=== PATIENT | male | born 1960 | race African-American/Black ===

== ENCOUNTER 2017-09-20 08:39 | Inpatient (IN) ==
[2017-09-20] MEDS ORDERED: MAGNESIUM SULF RIDER 4 GM in PREMIX 1 EACH IV PRN (12:49)
[2017-09-20] MEDS ORDERED: MAGNESIUM SULF RIDER 2 GM in PREMIX 1 EACH IV PRN ×2 (12:49→15:13)
[2017-09-20] MEDS ORDERED: ZALEPLON 5 MG CAPSULE PO PRN (12:50)
[2017-09-20] MEDS ORDERED: DOCUSATE SODIUM 100 MG CAPSULE PO PRN (12:50)
[2017-09-20] MEDS ORDERED: ONDANSETRON 4 MG/2 ML VIAL IV PRN (12:50)
[2017-09-20] MEDS ORDERED: ACETAMINOPHEN 325 MG TABLET PO PRN (12:50)
[2017-09-20] MEDS ORDERED: MORPHINE 4 MG/1 ML VIAL IV PRN (12:50)
[2017-09-20] MEDS ORDERED: diphenhydrAMINE CAP 25 MG CAPSULE PO PRN (12:50)
[2017-09-20 13:41] LABS: Basophils # 0.1 10*3/uL (0.0-0.2); Basophils % 1.2 % (0.0-0.8); Eosinophils # 0.8 10*3/uL (0.0-0.87); Eosinophils % 9.8 % (0.00-10.9); Hematocrit 48.5 VOL% (42.0-52.0); Hemoglobin 15.9 GM/DL (14.0-18.0); Immature Granulocytes % 0.3 %; Immature Granulocytes Absolute 0.02 #; Lymphocytes # 1.7 10*3/uL (1.4-4.0); Lymphocytes % 22.4 % (21.2-54.2); Mean Corpuscular HGB Conc 32.8 GM/DL (32-36); Mean Corpuscular Hemoglobin 29 PG (27-34); Mean Corpuscular Volume 89.8 FL (87-102); Monocytes # 0.9 10*3/uL (0.11-0.8); Neutrophils # 4.2 10*3/uL (1.4-7.4); Neutrophils % 54.3 % (38.7-73.9); Platelet Count 320 T/CUMM (130-400); Red Cell Distribution Width 14.1 % (9.3-17.3); White Blood Count 7.7 T/CUMM (4-12)
[2017-09-20 14:16] LABS: Albumin 2.7 G/DL (3.4-5.0); Bilirubin,Total 0.8 MG/DL (0.2-1.0); Calcium 8.8 MG/DL (8.5-10.1); Osmolality,Calculated 280.5 MOS/KG (273-304); Potassium 4.4 MMOL/L (3.5-5.1); Thyroid Stimulating Hormone 4.85 uIU/ml (0.358-3.74); Total Protein 6.8 G/DL (6.4-8.3)
[2017-09-20] MEDS ORDERED: NITROGLYCERIN SL 0.4 MG TABLET SL PRN (15:09)
[2017-09-20] MEDS ORDERED: POTASSIUM CHLORIDE RIDER 10 MEQ in PREMIX 1 EACH IV PRN (15:13)
[2017-09-20] MEDS: CARVEDILOL 3.125 MG TABLET PO SCH (16:56)
[2017-09-21] MEDS: SODIUM CHLORIDE 0.45% 1,000 ML IV SCH ×3 (02:23→22:40)
[2017-09-21 06:07] LABS: Basophils % 0.6 % (0.0-0.8); Eosinophils # 0.5 10*3/uL (0.0-0.87); Eosinophils % 10.3 % (0.00-10.9); Hematocrit 35.3 VOL% (42.0-52.0); Hemoglobin 11.6 GM/DL (14.0-18.0); Immature Granulocytes % 0.2 %; Immature Granulocytes Absolute 0.01 #; Lymphocytes # 1.1 10*3/uL (1.4-4.0); Lymphocytes % 24.1 % (21.2-54.2); Mean Corpuscular HGB Conc 32.9 GM/DL (32-36); Mean Corpuscular Hemoglobin 30 PG (27-34); Mean Corpuscular Volume 90.3 FL (87-102); Mean Platelet Volume 11.5 FL (9.6-12.0); Monocytes # 0.6 10*3/uL (0.11-0.8); Monocytes % 13.8 % (1.7-12.7); Neutrophils # 2.4 10*3/uL (1.4-7.4); Platelet Count 218 T/CUMM (130-400); Red Blood Count 3.91 MC/CUMM (3.8-5.5); Red Cell Distribution Width 13.8 % (9.3-17.3); White Blood Count 4.6 T/CUMM (4-12)
[2017-09-21 06:33] LABS: Albumin 2.3 G/DL (3.4-5.0); Bilirubin,Total 0.8 MG/DL (0.2-1.0); Calcium 8.1 MG/DL (8.5-10.1); Osmolality,Calculated 274.8 MOS/KG (273-304); Potassium 4.3 MMOL/L (3.5-5.1); Risk Ratio 3.21; Total Protein 5.9 G/DL (6.4-8.3); VLDL CHOLESTEROL 12.4 MG/DL
[2017-09-21] MEDS ORDERED: LIDOCAINE 1% 20 ML VIAL ONE (06:45)
[2017-09-21] MEDS ORDERED: HEPARIN/NACL 0.9% 2 UNITS/ML 1,000 ML IV ONE (06:45)
[2017-09-21] MEDS: ASPIRIN 325 MG TABLET PO SCH ×2 (07:27→10:24)
[2017-09-21] MEDS: CARVEDILOL 3.125 MG TABLET PO SCH ×2 (07:27→18:16)
[2017-09-21] MEDS ORDERED: DIAZEPAM 5 MG TABLET PO ONE (08:00)
[2017-09-21] MEDS ORDERED: diphenhydrAMINE CAP 25 MG CAPSULE PO ONE (08:00)
[2017-09-21] MEDS ORDERED: MIDAZOLAM 2 MG/2 ML VIAL ONE (08:14)
[2017-09-21] MEDS ORDERED: fentaNYL 100 MCG/2 ML VIAL ONE ×2 (08:14→09:43)
[2017-09-21] MEDS ORDERED: MORPHINE 10 MG/1 ML VIAL ONE (08:42)
[2017-09-21] MEDS ORDERED: BIVALIRUDIN 250 MG VIAL IV ONE ×2 (08:58→09:40)
[2017-09-21] MEDS: FUROSEMIDE 40 MG TABLET PO SCH (09:00)
[2017-09-21] MEDS: ALLOPURINOL 300 MG TABLET PO SCH (09:00)
[2017-09-21] MEDS: ATORVASTATIN 80 MG TABLET PO SCH (09:00)
[2017-09-21] MEDS: PANTOPRAZOLE 40 MG TABLET PO SCH (09:00)
[2017-09-21] MEDS ORDERED: LABETALOL 100 MG/20 ML VIAL IV ONE (09:31)
[2017-09-21] MEDS ORDERED: NITROGLYCERIN DRIP 50 MG/250 ML BOTTLE IV ONE (09:35)
[2017-09-21] MEDS ORDERED: HEPARIN/NACL 0.9% 2 UNITS/ML 500 ML IV ONE (09:41)
[2017-09-21] MEDS ORDERED: BIVALIRUDIN 250 MG in SODIUM CHLORIDE 0.9% 50 ML IV SCH (10:30)
[2017-09-21] MEDS ORDERED: TICAGRELOR 90 MG TABLET ONE (10:31)
[2017-09-21] MEDS ORDERED: TICAGRELOR 90 MG TABLET PO ONE (10:43)
[2017-09-21] MEDS: TICAGRELOR 90 MG TABLET PO SCH (21:09)
[2017-09-22 05:33] LABS: Basophils # 0.1 10*3/uL (0.0-0.2); Basophils % 0.7 % (0.0-0.8); Eosinophils # 0.5 10*3/uL (0.0-0.87); Eosinophils % 6.4 % (0.00-10.9); Hematocrit 44.1 VOL% (42.0-52.0); Hemoglobin 14.1 GM/DL (14.0-18.0); Immature Granulocytes % 0.4 %; Immature Granulocytes Absolute 0.03 #; Lymphocytes # 1.3 10*3/uL (1.4-4.0); Lymphocytes % 16.7 % (21.2-54.2); Mean Corpuscular Hemoglobin 29 PG (27-34); Mean Corpuscular Volume 90.7 FL (87-102); Mean Platelet Volume 11.1 FL (9.6-12.0); Monocytes # 0.8 10*3/uL (0.11-0.8); Monocytes % 10.5 % (1.7-12.7); Neutrophils # 4.9 10*3/uL (1.4-7.4); Neutrophils % 65.3 % (38.7-73.9); Platelet Count 274 T/CUMM (130-400); Red Blood Count 4.86 MC/CUMM (3.8-5.5); Red Cell Distribution Width 13.8 % (9.3-17.3); White Blood Count 7.5 T/CUMM (4-12)
[2017-09-22 06:00] LABS: Calcium 8.5 MG/DL (8.5-10.1); Osmolality,Calculated 278.7 MOS/KG (273-304)
[2017-09-22 06:05] LABS: Blood Urea Nitrogen 20 MG/DL (7-18); Calcium 8.5 MG/DL (8.5-10.1); Glucose 113 MG/DL (74-106); Osmolality,Calculated 280.5 MOS/KG (273-304); Sodium 139 MMOL/L (136-145)
[2017-09-22] MEDS: SODIUM CHLORIDE 0.45% 1,000 ML IV SCH (06:44)
[2017-09-22] MEDS: PANTOPRAZOLE 40 MG TABLET PO SCH (08:36)
[2017-09-22] MEDS: ALLOPURINOL 300 MG TABLET PO SCH (08:37)
[2017-09-22] MEDS: CARVEDILOL 3.125 MG TABLET PO SCH ×2 (08:37→16:51)
[2017-09-22] MEDS: FUROSEMIDE 40 MG TABLET PO SCH (08:37)
[2017-09-22] MEDS: hydrALAZINE 10 MG TABLET PO SCH ×2 (08:37→21:18)
[2017-09-22] MEDS: TICAGRELOR 90 MG TABLET PO SCH ×2 (08:37→21:18)
[2017-09-22] MEDS: ATORVASTATIN 80 MG TABLET PO SCH (08:37)
[2017-09-22] MEDS: ASPIRIN 325 MG TABLET PO SCH (08:37)
[2017-09-22] MEDS: APIXABAN 5 MG TABLET PO SCH ×2 (08:37→21:18)
[2017-09-23 05:25] LABS: Basophils # 0.1 10*3/uL (0.0-0.2); Basophils % 0.7 % (0.0-0.8); Eosinophils # 0.5 10*3/uL (0.0-0.87); Hematocrit 46.5 VOL% (42.0-52.0); Hemoglobin 15.4 GM/DL (14.0-18.0); Immature Granulocytes % 0.3 %; Immature Granulocytes Absolute 0.02 #; Lymphocytes # 1.5 10*3/uL (1.4-4.0); Mean Corpuscular HGB Conc 33.1 GM/DL (32-36); Mean Corpuscular Hemoglobin 29 PG (27-34); Mean Corpuscular Volume 88.9 FL (87-102); Mean Platelet Volume 10.8 FL (9.6-12.0); Monocytes % 12.4 % (1.7-12.7); Neutrophils # 4.7 10*3/uL (1.4-7.4); Neutrophils % 60.6 % (38.7-73.9); Platelet Count 293 T/CUMM (130-400); Red Blood Count 5.23 MC/CUMM (3.8-5.5); White Blood Count 7.7 T/CUMM (4-12)
[2017-09-23 05:41] LABS: Calcium 8.7 MG/DL (8.5-10.1); Osmolality,Calculated 281.3 MOS/KG (273-304); Potassium 4.3 MMOL/L (3.5-5.1)
[2017-09-23 05:42] LABS: Calcium 8.9 MG/DL (8.5-10.1); Osmolality,Calculated 281.3 MOS/KG (273-304); Potassium 4.3 MMOL/L (3.5-5.1)
[2017-09-23 06:22] VITALS: BP 135/107
[2017-09-23] MEDS ORDERED: CARVEDILOL 6.25 MG TABLET PO SCH (09:00)
[2017-09-23] MEDS: hydrALAZINE 10 MG TABLET PO SCH (09:51)
[2017-09-23] MEDS: APIXABAN 5 MG TABLET PO SCH (09:51)
[2017-09-23] MEDS: ASPIRIN 325 MG TABLET PO SCH (09:51)
[2017-09-23] MEDS: TICAGRELOR 90 MG TABLET PO SCH (09:51)
[2017-09-23] MEDS: ALLOPURINOL 300 MG TABLET PO SCH (09:52)
[2017-09-23] MEDS: ATORVASTATIN 80 MG TABLET PO SCH (09:52)
[2017-09-23] MEDS: PANTOPRAZOLE 40 MG TABLET PO SCH (09:52)
[2017-09-23] MEDS ORDERED: FUROSEMIDE 40 MG TABLET PO SCH (16:00)
== END 2017-09-23 10:45 | disposition home or self-care (01) | DRG 174 ==
LOC: N.CC 11:35 → INTOOBSV 11:35
PROVIDERS: ADMIT Internal Medicine Cardiovascular Disease; ATTEND Internal Medicine Cardiovascular Disease

== ENCOUNTER 2019-10-15 11:12 | Observation (INO) ==
[2019-10-15 12:27] LABS: Basophils # 0.1 10*3/uL (0.0-0.2); Eosinophils # 0.2 10*3/uL (0.0-0.87); Eosinophils % 3.2 % (0.00-10.9); Immature Granulocytes % 0.3 %; Immature Granulocytes Absolute 0.02 #; Lymphocytes # 1.6 10*3/uL (1.4-4.0); Lymphocytes % 25.9 % (21.2-54.2); Mean Corpuscular Volume 92.9 FL (87-102); Mean Platelet Volume 10.7 FL (9.6-12.0); Monocytes % 13.6 % (1.7-12.7); Platelet Count 293 T/CUMM (130-400); Red Blood Count 5.38 MC/CUMM (3.8-5.5); Red Cell Distribution Width 14.5 % (9.3-17.3); White Blood Count 6.3 T/CUMM (4-12)
[2019-10-15 12:35] LABS: INR 1.1; PT Patient Result 12.1 SECS (9.8-11.9); Partial Thromboplastin Time 35.9 SECS (23.9-33.8)
[2019-10-15 12:36] LABS: Albumin 3.2 G/DL (3.4-5.0); Bilirubin,Total 0.8 MG/DL (0.2-1.0); Calcium 9.3 MG/DL (8.5-10.1); Osmolality,Calculated 285.4 MOS/KG (273-304); Total Protein 7.7 G/DL (6.4-8.3)
[2019-10-15] MEDS ORDERED: GLUCAGON 1 MG VIAL IM PRN (13:59)
[2019-10-15] MEDS ORDERED: ONDANSETRON 4 MG/2 ML VIAL IV PRN (13:59)
[2019-10-15] MEDS ORDERED: ACETAMINOPHEN 325 MG TABLET PO PRN (13:59)
[2019-10-15] MEDS ORDERED: DEXTROSE 50% 25 GM/50 ML VIAL IV PRN (13:59)
[2019-10-15 14:39] LABS: Apearance,Urine CLEAR (Clear); Bilirubin,Urine Negative (Negative); Blood, Urine Negative (Negative); Glucose,Urine (UA) Negative (Negative); Hyaline Casts,Urine 4 /LPF (0-3); Ketones,Urine Negative (Negative); Nitrite,Urine Negative (Negative); Protein,Urine Negative; RBC,Urine 2 /HPF (0-4); Urine Color Straw (Yellow); Urine Specific Gravity 1.006 (1.001-1.035); Urine Urobilinogen < 2.0 EU/DL (0.2-1.0)
[2019-10-15] MEDS ORDERED: NITROGLYCERIN SL 0.4 MG TABLET SL PRN (15:11)
[2019-10-15] MEDS ORDERED: FUROSEMIDE 40 MG/4 ML VIAL IV STA (15:12)
[2019-10-15] MEDS: ISOSORBIDE MONONITRATE 30 MG TABLET PO SCH (16:13)
[2019-10-15 16:20] LABS: Troponin I < 0.015 NG/ML (0.00-0.045)
[2019-10-15 18:08] LABS: Troponin I < 0.015 NG/ML (0.00-0.045)
[2019-10-15] MEDS: hydrALAZINE 10 MG TABLET PO SCH (20:52)
[2019-10-15] MEDS: TICAGRELOR 90 MG TABLET PO SCH (20:52)
[2019-10-15] MEDS: carvediloL 6.25 MG TABLET PO SCH (20:53)
[2019-10-15] MEDS ORDERED: TORSEMIDE 20 MG TABLET PO SCH (21:00)
[2019-10-16 05:55] LABS: Basophils # 0.1 10*3/uL (0.0-0.2); Eosinophils # 0.3 10*3/uL (0.0-0.87); Eosinophils % 4.7 % (0.00-10.9); Hematocrit 49.2 VOL% (42.0-52.0); Hemoglobin 15.8 GM/DL (14.0-18.0); Immature Granulocytes % 0.3 %; Immature Granulocytes Absolute 0.02 #; Lymphocytes % 32.8 % (21.2-54.2); Mean Corpuscular HGB Conc 32.1 GM/DL (32-36); Mean Corpuscular Volume 92.7 FL (87-102); Mean Platelet Volume 10.7 FL (9.6-12.0); Monocytes % 14.8 % (1.7-12.7); Neutrophils % 46.4 % (38.7-73.9); Platelet Count 281 T/CUMM (130-400); Red Blood Count 5.31 MC/CUMM (3.8-5.5); Red Cell Distribution Width 14.4 % (9.3-17.3)
[2019-10-16 06:31] LABS: Calcium 8.8 MG/DL (8.5-10.1); Osmolality,Calculated 285.4 MOS/KG (273-304); Thyroid Stimulating Hormone 2.69 uIU/ml (0.358-3.74)
[2019-10-16] MEDS: ISOSORBIDE MONONITRATE 30 MG TABLET PO SCH (09:20)
[2019-10-16] MEDS: TICAGRELOR 90 MG TABLET PO SCH ×2 (09:20→20:38)
[2019-10-16] MEDS: carvediloL 6.25 MG TABLET PO SCH ×2 (09:20→20:38)
[2019-10-16] MEDS: hydrALAZINE 10 MG TABLET PO SCH ×2 (09:20→20:38)
[2019-10-16] MEDS: PANTOPRAZOLE 40 MG TABLET PO SCH (09:20)
[2019-10-16] MEDS: APIXABAN 5 MG TABLET PO SCH ×2 (10:22→20:38)
[2019-10-16] MEDS: FUROSEMIDE 40 MG/4 ML VIAL IV SCH (16:58)
[2019-10-17 06:19] LABS: Basophils # 0.1 10*3/uL (0.0-0.2); Basophils % 1.1 % (0.0-0.8); Eosinophils # 0.4 10*3/uL (0.0-0.87); Eosinophils % 5.7 % (0.00-10.9); Hematocrit 49.1 VOL% (42.0-52.0); Hemoglobin 15.9 GM/DL (14.0-18.0); Immature Granulocytes % 0.2 %; Immature Granulocytes Absolute 0.01 #; Lymphocytes # 2.1 10*3/uL (1.4-4.0); Lymphocytes % 33.3 % (21.2-54.2); Mean Corpuscular HGB Conc 32.4 GM/DL (32-36); Mean Corpuscular Volume 91.8 FL (87-102); Mean Platelet Volume 10.8 FL (9.6-12.0); Monocytes % 14.1 % (1.7-12.7); Neutrophils % 45.6 % (38.7-73.9); Platelet Count 269 T/CUMM (130-400); Red Blood Count 5.35 MC/CUMM (3.8-5.5); Red Cell Distribution Width 14.3 % (9.3-17.3); White Blood Count 6.2 T/CUMM (4-12)
[2019-10-17 07:04] LABS: Calcium 9.2 MG/DL (8.5-10.1); Osmolality,Calculated 280.7 MOS/KG (273-304)
[2019-10-17] MEDS: carvediloL 6.25 MG TABLET PO SCH (09:10)
[2019-10-17] MEDS: ISOSORBIDE MONONITRATE 30 MG TABLET PO SCH (09:10)
[2019-10-17] MEDS: APIXABAN 5 MG TABLET PO SCH (09:11)
[2019-10-17] MEDS: hydrALAZINE 10 MG TABLET PO SCH (09:11)
[2019-10-17] MEDS: PANTOPRAZOLE 40 MG TABLET PO SCH (09:11)
[2019-10-17] MEDS: FUROSEMIDE 40 MG/4 ML VIAL IV SCH (09:11)
[2019-10-17] MEDS: TICAGRELOR 90 MG TABLET PO SCH (09:11)
[2019-10-17 12:30] VITALS: BP 129/81
== END 2019-10-17 13:07 | disposition home or self-care (01) ==
LOC: N.ED 11:12 → N.EDINP 11:12 → N.TELEN 16:23
PROVIDERS: ADMIT Internal Medicine; ATTEND Internal Medicine